=== PATIENT | female | born 1975 | race Two or more races ===

== ENCOUNTER 2016-09-20 22:08 | Emergency (ER) | payer MEDICAID ==
[2016-09-20] MEDS ORDERED: PROPARACAINE HCL 0.5% 300 GTTS/BOT SOLN.DROP ONE (23:49)
== END 2016-09-21 00:48 | disposition home or self-care (01) ==
LOC: ED 22:08
DX: S05.11XA Contusion of eyeball and orbital tissues, right eye, initial encounter (principal); X58.XXXA Exposure to other specified factors, initial encounter; Y92.9 Unspecified place or not applicable
CPT/HCPCS: 99283 ×2; A9270

== ENCOUNTER 2016-12-28 19:43 | Emergency (ER) | payer MEDICAID ==
[2016-12-28] MEDS ORDERED: LACTATED RINGERS 1,000 ML ONE (20:18)
[2016-12-28] MEDS ORDERED: MORPHINE SULFATE 4 MG/ML SYRINGE ONE (20:18)
[2016-12-28] MEDS ORDERED: ONDANSETRON 4 MG/2ML 2 ML VIAL ONE (20:18)
[2016-12-28 20:29] LABS: ABSOLUTE NEUTROPHIL COUNT 4.7 K/mm3 (1.8-7.7); BASO % 0.5 % (0.2-1.0); EOS # 0.1 (0.0-0.5); EOS % 1.7 % (0.9-2.9); HEMATOCRIT 38.1 % (37.0-47.0); IMM NEUT% 0.3 % (0-1); LYMPH # 2.3 (1.0-4.8); LYMPH % 30.4 % (15-45); MEAN CELL VOLUME 91.1 fl (81.0-99.0); MEAN CORPUSCULAR HEMOGLOBIN 31.1 pg (27.0-31.0); MEAN CORPUSCULAR HGB CONC 34.1 g/dl (33.0-37.0); MEAN PLATELET VOLUME 9.9 fl (7.4-10.4); MONO # 0.5 (0.0-0.8); MONO % 5.9 % (4-12); NEUT % 61.2 % (43-75); PLATELET COUNT 255 K/mm3 (130-400); RED CELL DISTRIBUTION WIDTH 12.2 % (11.5-14.5)
[2016-12-28 20:50] LABS: ALB/GLOB RATIO 1.4 (>1.0); ALBUMIN 4.1 gm/dL (3.5-5.7)
--- NOTE | 2016-12-28 20:59 | US ---
Name: [place] LEAL Exam: Gallbladder Ultrasound Comparison: 09/15/2010 Clinical History: Right upper quadrant pain Findings: Ultrasound the gallbladder was performed. Gallbladder is normal size at 7.6 cm. Wall thickness is normal 2 mm. There is no sludge or stones and no pericholecystic fluid. Ultrasound Bishop sign is negative however the patient is medicated. Common bile duct is normal at 3 mm. Impression: Normal Gallbladder Ultrasound Note: The above report was uploaded to [facility]'s electronic medical records system at 2056 hours.
[2016-12-28] MEDS ORDERED: MAALOX/LIDO2%VISC/SIMETHICONE 40 ML BOT ONE (21:29)
[2016-12-28 21:45] LABS: SPECIFIC GRAVITY 1.015 (1.001-1.030); URINE BILIRUBIN NEGATIVE (NEGATIVE); URINE BLOOD 3+ (NEGATIVE); URINE GLUCOSE (UA) NEGATIVE (NEGATIVE); URINE LEUKOCYTE ESTERASE NEGATIVE (NEGATIVE); URINE NITRITE NEGATIVE (NEGATIVE); URINE PROTEIN NEGATIVE (NEGATIVE); URINE UROBILINOGEN NORMAL (0-1 mg/dl)
[2016-12-28 22:00] LABS: URINE APPEARANCE CLEAR; URINE COLOR YELLOW
[2016-12-28 22:02] LABS: URINE BACTERIA 0; URINE EPITHELIAL CELLS 0 /hpf; URINE RBC 20-30 /hpf; URINE WBC 0-2 /hpf
== END 2016-12-28 22:06 | disposition home or self-care (01) ==
LOC: ED 19:43
DX: S52.501A Unspecified fracture of the lower end of right radius, initial encounter for closed fracture (principal); W21.02XA Struck by soccer ball, initial encounter; Y93.66 Activity, soccer; Y92.322 Soccer field as the place of occurrence of the external cause
CPT/HCPCS: 83690; 85025; 80053; 81001; 76705; 96375; 99284; 96374; 96361 ×2; 99283; A9270; J2270; J2405; J7120